=== PATIENT | male | born 1990 | race Caucasian/White ===

== ENCOUNTER 2017-09-18 07:41 | Day surgery (SDC) | payer OTHER ==
[2017-09-15 12:09] VITALS: BMI 44.3
[2017-09-18] MEDS ORDERED: PROPOFOL 20 ML ONE ×2 (07:44)
[2017-09-18] MEDS ORDERED: LIDOCAINE HCL/PF 2% SDV 5ML VIAL ONE (07:45)
[2017-09-18 07:58] VITALS: PULSE 86
[2017-09-18 10:33] VITALS: BP 127/65
[2017-09-18 10:34] VITALS: TEMP 98.2
--- NOTE | 2017-09-19 12:42 | PATH ---
Surgical Pathology Report Patient Name: OBDULIA CORBIN [facility]. Rec. #: [id number] /Age/Gender: 1990 (Age: 27) / M Account: [id number] Location: [facility]-ENDOSCOPY Taken: 09/18/2017 Received: 09/18/2017 Reported: 09/19/2017 Physicians: Tera Rubin M.D. Specimen(s) Received A: BX DUODENUM B: BX ANTRUM Clinical History Preoperative diagnosis: GERD Postoperative diagnosis: Rule out celiac disease, mild gastritis Final Diagnosis A. DUODENUM, BIOPSY: DUODENAL MUCOSA WITH NO PATHOLOGIC CHANGES. NO HISTOLOGIC EVIDENCE OF GLUTEN SENSITIVE ENTEROPATHY (CELIAC SPRUE) IDENTIFIED. B. STOMACH, ANTRUM, BIOPSY: GASTRIC ANTRAL AND FUNDIC MUCOSA WITH MILD CHRONIC GASTRITIS. IMMUNOSTAIN FOR H. PYLORI IS NEGATIVE. Electronically Signed Mahendra Jorge M.D. Gross Description A. Received in formalin, labeled "duodenum" are 2 toure, irregular portions of soft tissue averaging 0.3 cm. in greatest dimension. The specimens are submitted in toto in one cassette. B. Received in formalin, labeled "antrum" are 2 toure, irregular portions of soft tissue measuring 0.2 and 0.3 cm. in greatest dimension. The specimens are submitted in toto in one cassette. 09/18/201709/18/2017
== END 2017-09-18 10:00 | disposition home or self-care (01) ==
LOC: FASU-ENDO 07:41
PROVIDERS: ATTEND Internal Medicine Gastroenterology
PROC: 0DB98ZX Excision of Duodenum, Via Natural or Artificial Opening Endoscopic, Diagnostic (ICD-10-PCS; principal; 2017-09-18 08:51)
PROC: 0DB68ZX Excision of Stomach, Via Natural or Artificial Opening Endoscopic, Diagnostic (ICD-10-PCS; 2017-09-18 08:51)
DX: K29.50 Unspecified chronic gastritis without bleeding (principal)
CPT/HCPCS: 88305-TC; 88342-TC